=== PATIENT | female | born 1985 | race Caucasian/White ===

== ENCOUNTER 2020-05-23 08:00 | Outpatient (CLI) | payer OTHER ==
[~2020-05-23 08:00] MED LIST: DIPH25CA61 PO; DOCU-131 PO; DOCU240C31 PO; IBUP-1222 PO; LORA1TAB46 PO; OMEP20TA62 PO; OXYC1TAB14 PO; PREN1TAB60 PO
[2020-05-23 08:58] LABS: BASOPHILS % (AUTO) 1 % (0-1); EOSINOPHILS % (AUTO) 3 % (1-7); LYMPHOCYTES % (AUTO) 33 % (22-44); MEAN CORPUSCULAR HEMOGLOBIN 32.6 pg (27.0-34.8); MEAN CORPUSCULAR HGB CONC 33.9 g/dL (32.4-35.8); MEAN PLATELET VOLUME 8.6 fL (7.4-10.4); MONOCYTES % (AUTO) 10 % (2-9); NEUTROPHILS % (AUTO) 52 % (42-75); PLATELET COUNT 223 x10^3/uL (130-400); RED BLOOD COUNT 4.27 x10^6/uL (3.82-5.3); RED CELL DISTRIBUTION WIDTH 12.9 % (9.6-15.2)
[2020-05-23 09:05] LABS: ALANINE AMINOTRANSFERASE 36 U/L (12-78); ALBUMIN 3.8 g/dL (3.4-5.0); ANION GAP 4 mmol/L (5-15); CALCIUM 8.7 mg/dL (8.5-10.1); CHLORIDE 109 mmol/L (98-107); CREATININE 0.81 mg/dL (0.55-1.02); MD NO
[2020-05-23 09:09] LABS: ALKALINE PHOSPHATASE 71 U/L (45-117); BILIRUBIN,TOTAL 0.3 mg/dL (0.2-1.0); TOTAL PROTEIN 7.4 g/dL (6.4-8.2)
[2020-05-23] MEDS ORDERED: CHOL10003 PO (09:41)
[2020-05-23] MEDS ORDERED: GREENS PO (09:41)
[2020-05-23] MEDS ORDERED: CYAN100072 PO (09:41)
[2020-05-23] MEDS ORDERED: NORE0.3552 PO (09:41)
[2020-05-23] MEDS ORDERED: IBUP-1623 PO (09:41)
[2020-05-23] MEDS ORDERED: TOPI25TA32 PO (09:41)
[2020-05-23] MEDS ORDERED: ASHW300C PO (09:41)
[2020-05-23] MEDS ORDERED: CETI10TA76 PO (09:41)
[2020-05-23] MEDS ORDERED: ESCI5TAB7 PO (09:41)
[2020-05-23] MEDS ORDERED: LEVO50TA5 PO (09:41)
[2020-05-23] MEDS ORDERED: LEVO75TA5 PO (09:41)
== END 2020-05-23 23:59 | disposition home or self-care (01) ==
LOC: STAR 08:00
PROVIDERS: ATTEND Obstetrics & Gynecology
DX: Z01.812 Encounter for preprocedural laboratory examination (principal); R10.2 Pelvic and perineal pain; N94.6 Dysmenorrhea, unspecified; Z20.822 Contact with and (suspected) exposure to COVID-19
CPT/HCPCS: 36415; 80053; 84703; 85025; U0003

== ENCOUNTER 2020-05-28 10:02 | Day surgery (SDC) | payer OTHER ==
[~2020-05-28] VITALS: Ht 167.6 cm; Wt 86.3 kg
[~2020-05-28 10:02] MED LIST changes: +ASHW300C PO; +CETI10TA76 PO; +CHOL10003 PO; +CYAN100072 PO; +EPHEDRINE 50 MG/ML, 1ML IVPush PRN; +ESCI5TAB7 PO; +GREENS PO; +HYDROmorphone 1 MG/ML, 1ML INJ IVPush PRN; +IBUP-1623 PO; +LABETALOL 5MG/ML, 20ML IV PRN; +LEVO50TA5 PO; +LEVO75TA5 PO; +NORE0.3552 PO; +ONDANSETRON 2MG/ML, 2ML IVPush PRN; +PROMETHAZINE 25 MG/ML, 1ML IVPush PRN; +TOPI25TA32 PO; +hydrALAzine 20 MG/ML, 1ML IV PRN
[2020-05-28 10:36] VITALS: BP 123/78
[2020-05-28] MEDS ORDERED: BUPIVACAINE/PF 0.25% ONE (10:44)
[2020-05-28] MEDS ORDERED: FLUORESCEIN SODIUM 500 MG/5 ML ONE (10:44)
[2020-05-28] MEDS ORDERED: EPINEPHRINE 1 MG/ML, 1ML ONE (10:44)
[2020-05-28] MEDS ORDERED: CHLORHEXIDINE 15 ML UDC PO ONE (11:00)
[2020-05-28] MEDS ORDERED: ACETAMINOPHEN 500 MG TABLET PO ONE (11:00)
[2020-05-28] MEDS ORDERED: LACTATED RINGERS 1,000 ML IV SCH (11:00)
[2020-05-28] MEDS ORDERED: MIDAZOLAM 1 MG/ML, 2ML ONE (12:24)
[2020-05-28] MEDS ORDERED: FENTANYL PF 250 MCG/5ML ONE (12:39)
[2020-05-28] MEDS ORDERED: KETOROLAC 30 MG/1 ML ONE (12:39)
[2020-05-28] MEDS ORDERED: DEXAMETHASONE 4 MG/ML, 1ML ONE (12:40)
[2020-05-28] MEDS ORDERED: ONDANSETRON 2MG/ML, 2ML ONE (12:40)
[2020-05-28] MEDS ORDERED: LIDOCAINE-MPF 2% ,5ML ONE (12:40)
[2020-05-28] MEDS ORDERED: SUCCINYLCHOLINE 20 MG/ML, 10ML ONE (12:40)
[2020-05-28] MEDS ORDERED: GLYCOPYRROLATE 0.2MG/1ML, 5ML ONE (12:40)
[2020-05-28] MEDS ORDERED: CEFAZOLIN 1,000 MG ONE (12:40)
[2020-05-28] MEDS ORDERED: PROPOFOL 10 MG/ML, 20ML ONE (12:40)
[2020-05-28] MEDS ORDERED: NEOSTIGMINE 1 MG/ML, 10ML ONE (12:40)
[2020-05-28] MEDS ORDERED: ROCURONIUM 10MG/ML,5ML ONE (12:40)
[2020-05-28] MEDS ORDERED: FENTANYL PF 100 MCG/2ML ONE (14:08)
[2020-05-28] MEDS ORDERED: MEPERIDINE/PF 25MG/ML,1ML ONE (14:08)
[2020-05-28] MEDS: FENTANYL PF 100 MCG/2ML IV PRN ×4 (14:10→14:44)
[2020-05-28] MEDS: OXYcodone 5 MG/5 ML ORAL.SOL UDC PO PRN ×2 (14:17→18:09)
[2020-05-28] MEDS ORDERED: OXYcodone 5 MG/5 ML ORAL.SOL UDC ONE (14:17)
[2020-05-28] MEDS ORDERED: METHOCARBAMOL 1,000 MG in DEXTROSE 5% 100 ML IV ONE (14:30)
[2020-05-28] MEDS ORDERED: HYDROmorphone 1 MG/ML, 1ML INJ ONE (14:45)
[2020-05-28 17:17] LABS: MEAN CORPUSCULAR HEMOGLOBIN 32.3 pg (27.0-34.8); MEAN CORPUSCULAR HGB CONC 33.9 g/dL (32.4-35.8); MEAN PLATELET VOLUME 8.6 fL (7.4-10.4); PLATELET COUNT 211 x10^3/uL (130-400); RED BLOOD COUNT 4.21 x10^6/uL (3.82-5.3)
[2020-05-28 18:17] LABS: MD YES
[2020-05-28 20:07] LABS: BANDS%(MANUAL) 8 % (0-7); BASOS#(MANUAL) 0.14 x10^3/uL (0-0.1); BASOS% (MANUAL) 1 % (0-1); LYMPH#(MANUAL) 1.23 x10^3/uL (1-3.4); LYMPHS% (MANUAL) 9 % (22-44); MONOS#(MANUAL) 0.27 x10^3/uL (0.3-2.7); MONOS% (MANUAL) 2 % (2-9); SEG#(MANUAL) 10.96 x10^3/uL (1.8-6.8); SEGS% (MANUAL) 80 % (42-75)
[2020-05-28 20:08] LABS: <PLATELET ESTIMATE> ADEQUATE; <PLT MORPHOLOGY> NORMAL PLT MORPH; <RBC MORPHOLOGY> NORMAL
== END 2020-05-28 20:20 | disposition home or self-care (01) ==
LOC: OUT 10:02
PROVIDERS: ATTEND Obstetrics & Gynecology
DX: N94.6 Dysmenorrhea, unspecified (principal); E03.9 Hypothyroidism, unspecified; G43.909 Migraine, unspecified, not intractable, without status migrainosus; Z79.890 Hormone replacement therapy; Z79.899 Other long term (current) drug therapy; Z82.49 Family history of ischemic heart disease and other diseases of the circulatory system; Z82.5 Family history of asthma and other chronic lower respiratory diseases
CPT/HCPCS: 36415; 58262; 84703; 85025; 86850; 86900; 88302; 88307; J0171; J0330; J0690; J1100; J1170; J1885; J2250; J2405; J2704; J2710; J2800; J3010; J7120